=== PATIENT | female | born 1965 | race Caucasian/White ===

== ENCOUNTER 2017-06-27 03:53 | Emergency (ER) | payer OTHER ==
[~2017-06-27] VITALS: Ht 167.6 cm; Wt 72.6 kg
[2017-06-27] MEDS ORDERED: DIPHENHIST50 MG PO (04:30)
[2017-06-27] MEDS ORDERED: PREDNISONE50 MG PO (04:30)
[2017-06-27 04:43] VITALS: BP 114/62
== END 2017-06-27 04:44 | disposition home or self-care (01) ==
LOC: M.ERS 03:53
DX: L50.8 Other urticaria (principal); T78.49XA Other allergy, initial encounter; X58.XXXA Exposure to other specified factors, initial encounter